=== PATIENT | male | born 1950 ===

== ENCOUNTER 2017-04-01 22:04 | Emergency (ER) | payer OTHER ==
[2017-04-01 22:15] VITALS: BP 152/77; PULSE 76; RESP 16; TEMP 98.5; O2SAT 98
[2017-04-01] MEDS ORDERED: TDAP Vaccine 0.5 mL Syr IM ONE (22:18)
--- NOTE | 2017-04-01 22:23 | ED PDOC ---
HPI: General Adult Time Seen by Provider: 04/01/17 22:13 Chief Complaint (Nursing): Finger,Hand,&Wrist History Per: Patient Additional Complaint(s): Pt. states 3 days ago while at work he accidentally cut his L 3rd digit on the corner of a sharp metal table. He's had progressively worsening pain to the finger. Denies numbness, tingling, FB sensation. Past Medical History Reviewed: Historical Data, Nursing Documentation, Vital Signs Vital Signs: Last Vital Signs Temp 98.5 F 04/01/17 22:11 Pulse 76 04/01/17 22:11 Resp 16 04/01/17 22:11 BP 152/77 H 04/01/17 22:11 Pulse Ox 98 04/01/17 22:23 - Family History Family History: States: No Known Family Hx - Home Medications Home Medications: Ambulatory Orders Medication Instructions Recorded Amoxicillin/Potassium Clav 1 each PO BID #20 tablet 04/01/17 [Augmentin 500-125 Tablet] Naproxen [Naprosyn] 500 mg PO BID PRN #30 tab 04/01/17 - Allergies Allergies/Adverse Reactions: Allergies Allergy/AdvReac Type Severity Reaction Status Date / Time No Known Allergies Allergy Verified 04/01/17 22:14 Review of Systems ROS Statement: Except As Marked, All Systems Reviewed And Found Negative Physical Exam - Physical Exam Appears: Positive for: Well, Non-toxic, No Acute Distress Skin: Positive for: Normal Color, Warm. Negative for: Rash Pulses-Radial (L): 2+ Pulses-Radial (R): 2+ Extremity: Positive for: Normal ROM (L 3rd digit with FROM actively), Capillary Refill (< 2 seconds of L 3rd digit), Other (L 3rd digit with superficial abrasions on distal phalanx with tenderness but no deformity, swelling, warmth, erythema, or discharge) Neurologic/Psych: Positive for: Alert, Oriented - ECG O2 Sat by Pulse Oximetry: 98 - Radiology X-Ray: Interpreted by Me (L 3rd digit x-ray) X-Ray Interpretation: Other (distal tuft fx) - Progress ED Course And Treament: Finger x-ray ordered. Tetanus prophylaxis administered. Finger immobilized in aluminum finger splint applied by PA. Pt. offered pain meds in ED but refused. Disposition - Clinical Impression Clinical Impression: Finger fracture - Patient ED Disposition Is Patient to be Admitted: No - Disposition Referrals: [facility] [Outside] [facility] [Outside] [facility] [Outside] Disposition: Routine/Home Disposition Time: 23:23 Condition: STABLE Prescriptions: Amoxicillin/Potassium Clav [Augmentin 500-125 Tablet] 1 each PO BID #20 tablet Naproxen [Naprosyn] 500 mg PO BID PRN #30 tab PRN Reason: Pain Instructions: Finger Fracture (ED) Forms: [employer] (Tanzanian) Print Language: CHADIAN
[2017-04-01] MEDS ORDERED: Naproxen 500 MG TAB PO ONE ×2 (23:26→23:31)
--- NOTE | 2017-04-02 17:18 | RAD ---
PROCEDURE: Left middle finger radiographs. HISTORY: trauma COMPARISON: None. TECHNIQUE: AP radiograph of the left hand, as well as spot oblique and lateral images of left middle finger were obtained. FINDINGS: LEFT MIDDLE FINGER: Avulsion fracture distal tuft. Remainder of the left hand (as seen on the AP view) is grossly unremarkable. JOINTS: Osteoarthritic changes, mild. SOFT TISSUES: Soft tissue swelling attests to the acuity of the fracture. OTHER FINDINGS: Evidence of old Colles fracture. IMPRESSION: Acute fracture distal tuft left middle finger. No preliminary report provided by emergency department personnel.
== END 2017-04-01 23:55 | disposition home or self-care (01) ==
LOC: H.ER 22:04
DX: S61.213A Laceration without foreign body of left middle finger without damage to nail, initial encounter (principal); W26.8XXA Contact with other sharp object(s), not elsewhere classified, initial encounter; Y99.0 Civilian activity done for income or pay

== ENCOUNTER 2017-04-04 12:16 | Emergency (ER) | payer OTHER ==
[2017-04-04 12:28] VITALS: BP 180/84; PULSE 62; RESP 16; TEMP 97; O2SAT 99
--- NOTE | 2017-04-04 12:43 | ED PDOC ---
HPI: Wound Care - HPI Time Seen by Provider: 04/04/17 12:34 Chief Complaint (Nursing): Upper Extremity Problem/Injury Chief Complaint (Provider): Wound check History Per: Patient, Ginger Farmer (Interpeted by Rachel, registration employee ) Exam Limitations: no limitations Additional Complaint(s): Lucia Draper is a 66 y/o right-handed dominant male presenting to the ER on 04/04/2017 for a wound check. Patient reports on 04/01/2017, he states he sustained an injury to his left third digit after a pile of dishes crushed his finger as he was at work. He was evaluated in this ED after the injury. After having an X-ray performed, the results showed a tuft fracture to the left third digit. Upon discharge, he was placed on Augmentin and was advised to schedule a follow-up, which he states he has not adhered to upon arrival today. Patient notes he still experiences pain and swelling to the finger. Denies any fever or discharge. He notes he has been compliant with his medication. He denies any fever, discharge, or worsening pain to the finger. Past Medical History Reviewed: Historical Data, Nursing Documentation, Vital Signs Vital Signs: Last Vital Signs Temp 97.0 F L 04/04/17 12:25 Pulse 62 04/04/17 12:25 Resp 16 04/04/17 12:25 BP 180/84 H 04/04/17 12:25 Pulse Ox 99 04/04/17 12:25 - Medical History PMH: No Chronic Diseases - Surgical History Surgical History: No Surg Hx - Family History Family History: States: Unknown Family Hx - Social History Current smoker - smoking cessation education provided: No Alcohol: None Drugs: Denies - Home Medications Home Medications: Ambulatory Orders Medication Instructions Recorded Amoxicillin/Potassium Clav 1 each PO BID #20 tablet 04/01/17 [Augmentin 500-125 Tablet] Naproxen [Naprosyn] 500 mg PO BID PRN #30 tab 04/01/17 Naproxen [Naprosyn] 500 mg PO BID PRN #20 tablet 04/04/17 - Allergies Allergies/Adverse Reactions: Allergies Allergy/AdvReac Type Severity Reaction Status Date / Time No Known Allergies Allergy Verified 04/01/17 22:14 Review of Systems ROS Statement: Except As Marked, All Systems Reviewed And Found Negative Constitutional: Negative for: Fever Musculoskeletal: Positive for: Hand Pain ((+) finger pain, swelling) Neurological: Negative for: Weakness, Numbness Physical Exam - Reviewed Nursing Documentation Reviewed: Yes Vital Signs Reviewed: Yes - Physical Exam Appears: Positive for: Non-toxic, No Acute Distress Head Exam: Positive for: ATRAUMATIC, NORMOCEPHALIC Skin: Positive for: Normal Color. Negative for: Rash Eye Exam: Positive for: Normal appearance Extremity: Positive for: Normal ROM (patient is able to flex and extend finger ) , Capillary Refill (less than 2 seconds), Swelling (distal phalanx is mildly edematous. ), Other ((+) 0.25 cm wound to the palmar aspect of left third distal phalanx. mildly reoslving subungual hematoma to the proximal fingernail.) . Negative for: Deformity Neurologic/Psych: Positive for: Alert, Oriented, Gait (normal). Negative for: Motor/Sensory Deficits - ECG O2 Sat by Pulse Oximetry: 99 Pulse Ox Interpretation: Normal Medical Decision Making Medical Decision Makin:34 Initial Impression- 66 y/o male with left third digit pain Patient will have wound clean and splint re-applied. Advised patient to adhere to follow up with Dr. Mckenna, hand specialist. Wound care instructions were given. he was advised to return for any worsening or change in symptoms, fever , erythema, decreased sensation, or discharge. Documented by Kelly Brunson, acting as a scribe for Shaye Calderon PA-C All medical record entries made by the Scribe were at my direction and personally dictated by me. I have reviewed the chart and agree that the record accurately reflects my personal performance of the history, physical exam, medical decision making, and the department course for this patient. I have also personally directed, reviewed, and agree with the discharge instructions and disposition. Disposition - Clinical Impression Clinical Impression: Finger fracture, Visit for wound check - Patient ED Disposition Is Patient to be Admitted: No Counseled Patient/Family Regarding: Diagnosis, Need For Followup - Disposition Referrals: Daniel Mckenna MD [Medical Doctor] - Disposition: Routine/Home Disposition Time: 14:16 Condition: STABLE Additional Instructions: Keep wound clean and dry. Keep splint on finger. Follow up with Dr. Mckenna, hand specialist. Take medication as prescribed. Return to the ED for any worsening of symptoms, wound drainage, or fever. Prescriptions: Naproxen [Naprosyn] 500 mg PO BID PRN #20 tablet PRN Reason: Pain, Moderate (4-7) Instructions: Finger Fracture (ED), Finger Laceration (ED) Forms: [facility] (Danish), [facility] ED School/Work Excuse Print Language: RWANDAN
== END 2017-04-04 14:39 | disposition home or self-care (01) ==
LOC: H.ER 12:16
DX: Z47.89 Encounter for other orthopedic aftercare (principal)